=== PATIENT | male | born 1950 | race Caucasian/White ===

== ENCOUNTER 2023-08-30 09:28 | Outpatient (AMB) | payer MEDICARE, SELFPAY ==
[2023-08-30 10:32] VITALS: BP 118/70; PULSE 77; TEMP 36.6; O2SAT 98
--- NOTE | 2023-08-30 10:32 | AM.OFFWIN_ITS ---
Intake Vital Signs 08/30/23 10:32 Height 5 ft 10 in BP 118/70 Blood Pressure Location Rt brachial Position Sitting Pulse 77 Pulse Source Pulse Oximeter Temp 97.8 F Temp Source Oral Pulse Oximetry (%) 98 Oxygen Delivery Method Room Air Intake Visit Reasons: EP RT eye concerns [phone] Intake Note: pt is here for right eye concern, Patient Tobacco Use Status: Never used Tobacco Allergies No Known Allergies Allergy (Verified 08/30/23 10:33) Do you need a note to return to daycare/school/sports/work: No HPI HPI Comments History of Present Illness Details Patient is a 73-year-old male complaining of right eye redness. He states 4 days ago, he was [place] and then at 3 flu into his eye. He kept rubbing it with his shirt to try to get the Isabelle out. When he got home, he administered Visine in the I and states that was painful. He then took a dry Q-tip and removed the bug. He states that since then it has been painful and red. He denies any changes in his vision. [facility] Social History Patient Tobacco Use Status: Never used Tobacco Review of Systems Const All systems reviewed & are unremarkable except as noted in HPI and below Physical Exam Vital Signs: Last Vital Signs Temp 97.8 F 08/30/23 10:32 Pulse 77 08/30/23 10:32 BP 118/70 08/30/23 10:32 Pulse Ox 98 08/30/23 10:32 Oxygen Delivery Method Room Air 08/30/23 10:32 Const General: cooperative, healthy appearing, comfortable and no acute distress Nutritional Appearance: average body habitus Orientation/consciousness: patient oriented x3 Limitations: no limitations HEENT Head: Yes normal to inspection Ears: external ears normal General nose exam: Normal external nose present Face and sinus: Yes normal facial exam Eyes Periorbital: periorbital findings normal Eyelids: Yes eyelids normal Conjunctivae: conjunctival abnormal right conjunctival injection localized (inferior central/right) Sclerae: sclerae normal Pupils: Equal, round and reactive pupils present EOM: EOMs intact bilaterally Resp Effort & Inspection: normal respiratory effort and able to speak in complete sentences Neuro General: patient oriented x3 Cranial nerves: Yes Equal, round and reactive pupils present Assessment & Plan Assessment & Plan (1) Corneal abrasion, right: Code(s): S05.01XA - Injury of conjunctiva and corneal abrasion without foreign body, right eye, initial encounter Plan: likely corneal abrasion, rx erythromycin, if changes in vision or no improvement after using the erythromycin ointment, please follow-up with his eye doctor or his primary care physician. Plan see above Medications: New erythromycin apply to right eye four times daily while awake 0.5 inches ophthalmic (eye) QID 3.5 grams 0RF S05.01XA - Injury of conjunctiva and corneal abrasion without foreign body, right eye, initial encounter Coding Level of Care Code Est Pt Level 2 (40010) Diagnoses Corneal abrasion, right S05.01XA
== END 2023-08-30 10:54 | disposition home or self-care (01) ==
PROVIDERS: PCP Internal Medicine; Visit Provider Physician Assistant
DX: S05.01XA Injury of conjunctiva and corneal abrasion without foreign body, right eye, initial encounter (principal)
CPT/HCPCS: 99213